=== PATIENT | female | born 1960 | race Two or more races ===

== ENCOUNTER 2022-06-08 06:28 | Day surgery (SDC) | payer SELFPAY ==
[~2022-06-08] VITALS: Ht 165.1 cm; Wt 44.1 kg
[2022-06-08] VITALS (8 sets, daily range): BP systolic 87–117; BP diastolic 45–69
[2022-06-08] MEDS ORDERED: LIDOcaine 1% 30ml preserv. free vial SQ STA (06:41)
[2022-06-08] MEDS ORDERED: AMIN1CAP5 (07:02)
[2022-06-08] MEDS ORDERED: CEPH-585 PO (07:02)
== END 2022-06-08 10:20 | disposition home or self-care (01) ==
LOC: SSTAY O 06:28
PROVIDERS: ATTEND Radiology Diagnostic Radiology
DX: J90 Pleural effusion, not elsewhere classified (principal); Z79.899 Other long term (current) drug therapy; Z98.890 Other specified postprocedural states; Z88.0 Allergy status to penicillin
CPT/HCPCS: 32555; 87070